=== PATIENT | male | born 1965 | race Caucasian/White ===

== ENCOUNTER 2017-03-20 12:06 | Outpatient (CLI) | payer OTHER ==
--- NOTE | 2017-03-20 12:49 | PDANEPAE ---
ANE History of Present Illness h/o MS surveillance MRI ANE Past Medical History - Cardiovascular History Hx Hypertension: No Hx Arrhythmias: No Hx Chest Pain: No Hx Coronary Artery / Peripheral Vascular Disease: No Hx CHF / Valvular Disease: No Hx Palpitations: No - Pulmonary History Hx COPD: No Hx Asthma/Reactive Airway Disease: No Hx Recent Upper Respiratory Infection: No Hx Oxygen in Use at Home: No Hx Sleep Apnea: Yes Pulmonary History Comment: PNA - Neurologic History Hx Cerebrovascular Accident: No Hx Seizures: No Hx Dementia: No Neurologic History Comment: MS - Endocrine History Hx Diabetes: No Obesity: yes - Renal History Hx Renal Disorders: No - Liver History Hx Hepatic Disorders: No - Neurological & Psychiatric Hx Hx Neurological and Psychiatric Disorders: Yes Neurological / Psychiatric History Comment: +MS; depression - Cancer History Hx Cancer: No - Congenital Disorder History Hx Congenital Disorders: No - GI History Hx Gastrointestinal Disorders: Yes Gastrointestinal History Comment: ILLIO ANAL PULL THROUGH AT AGE 14. ILLEOSTOMY 2007 [id number] GI SURGERIES TOTALing 39 - Other Health History Other Health History: Recently more emotional imblalances, therefore doing MRI of brain stem and brain - Chronic Pain History Chronic Pain: Yes (L lower back) - Surgical History Prior Surgeries: MULTIPLE PRIOR MRIs W GEN ANESTHESIA;. Back fusion x 4; ucerative colitis x 39 sx w/ illiostomy; L knee x 2; R pinky fingure; ANE Review of Systems - Exercise capacity METS (RN): 3 METS ANE Patient History - Allergies Allergies/Adverse Reactions: No Known Allergies Allergy (Unverified 12/18/12 16:06) - Home Medications Home medications: home medication list seen and reviewed Home Medications: Aubagio 14 mg PO DAILY 03/18/17 [Last Taken Unknown] Fentanyl 100 mcg TD EVERY OTHER DAY 03/18/17 [Last Taken Unknown] Lamotrigine 200 mg PO DAILY 03/18/17 [Last Taken Unknown] OLANZapine 20 mg PO DAILY 03/18/17 [Last Taken Unknown] Oxycodone HCl 15 mg PO DAILY PRN 03/18/17 [Last Taken Unknown] PARoxetine HCL 60 mg PO DAILY 03/18/17 [Last Taken Unknown] - Anes Hx Anes Hx: no prior problems - Smoking Hx Smoking Status: Never smoked - Alcohol Use Alcohol Use: Rarely - Family Anes Hx Family Anes Hx: none Family Hx Anesthesia Complications: denies ANE Labs/Vital Signs - Vital Signs Height: 185.42 cm Weight: 115.212 kg ANE Physical Exam - Airway Neck exam: FROM Mallampati Score: Class 2 Mouth exam: normal dental/mouth exam - Pulmonary Pulmonary: no respiratory distress - Cardiovascular Cardiovascular: regular rate and rhythym - ASA Status ASA Status: III ANE Anesthesia Plan Anesthesia Plan: GA w LMA
[2017-03-20] MEDS ORDERED: GADOBUTROL 10 ML VIAL IVP ONE (12:55)
[2017-03-20] MEDS ORDERED: ROCURONIUM 100 MG/10 ML VIAL ONE (13:22)
[2017-03-20] MEDS ORDERED: SUCCINYLCHOLINE CHLORIDE 200 MG/10 ML VIAL ONE (13:22)
[2017-03-20] MEDS ORDERED: PROPOFOL/EMULSION 500 MG/50 ML BOTTLE IV ONE (13:25)
[2017-03-20] MEDS ORDERED: NALOXONE HCL 0.4 MG/ML INJ IVP PRN (15:57)
[2017-03-20] MEDS ORDERED: LR 500 ML IV PRN (15:57)
[2017-03-20] MEDS ORDERED: PROMETHAZINE HCL 25 MG/ML INJ IVP PRN (15:57)
[2017-03-20] MEDS ORDERED: ONDANSETRON 4 MG/2 ML VIAL IVP PRN (15:57)
[2017-03-20] MEDS ORDERED: ACETAMINOPHEN 500 MG TAB PO PRN (15:57)
[2017-03-20] MEDS ORDERED: OXYCODONE/APAP 5/325 TAB PO PRN (15:57)
--- NOTE | 2017-03-20 15:57 | POSTANESTH ---
Post Anesthetic Evaluation Cardiovascular Status: Normal, Stable Respiratory Status: Normal, Stable Level of Consciousness/Mental Status: Can Participate in Eval Pain Control: Adequate, Prn Tx Ordered Nausea/Vomiting Control: Adequate, Prn Tx Ordered Complications Possibly Related to Anesthesia: None Noted
[2017-03-20 16:29] VITALS: TEMP 97.2
[2017-03-20 16:53] VITALS: BP 109/81; RESP 16; O2SAT 93
[2017-03-20] MEDS ORDERED: PHENYLEPHRINE 10 MG/ML SDV ONE (18:14)
[2017-03-20] MEDS ORDERED: LIDOCAINE 2% 2 ML INJ ONE (18:14)
== END 2017-03-20 17:05 | disposition home health service (06) ==
LOC: FIMAGING 12:06
PROVIDERS: ATTEND Specialist
DX: G35 Multiple sclerosis (principal)
CPT/HCPCS: 70553; 72156; A9585; J2370; J2704; J0330

== ENCOUNTER 2018-02-12 06:55 | Outpatient (CLI) | payer OTHER ==
[2018-02-12] MEDS ORDERED: GADOBUTROL 10 ML VIAL IVP ONE (07:59)
[2018-02-12] MEDS ORDERED: MIDAZOLAM 2 MG/2 ML VIAL IVP PRN (08:25)
[2018-02-12] MEDS ORDERED: MIDAZOLAM 2 MG/2 ML VIAL IVP ONE (08:25)
[2018-02-12] MEDS ORDERED: ALBUTEROL 3 ML DEYVIAL IH PRN (08:26)
[2018-02-12] MEDS ORDERED: ONDANSETRON 4 MG/2 ML VIAL IVP PRN (08:26)
[2018-02-12] MEDS ORDERED: NALOXONE HCL 0.4 MG/ML INJ IVP PRN (08:26)
[2018-02-12] MEDS ORDERED: fentaNYL 100 MCG/2 ML INJ IVP PRN (08:26)
--- NOTE | 2018-02-12 08:26 | PDANEPAE ---
ANE History of Present Illness here for MRI brain ANE Past Medical History - Cardiovascular History Hx Hypertension: No Hx Arrhythmias: No Hx Chest Pain: No Hx Coronary Artery / Peripheral Vascular Disease: No Hx CHF / Valvular Disease: No Hx Palpitations: No - Pulmonary History Hx COPD: No Hx Asthma/Reactive Airway Disease: No Hx Recent Upper Respiratory Infection: No Hx Oxygen in Use at Home: No Hx Sleep Apnea: No Sleep Apnea Screening Result - Last Documented: Positive Pulmonary History Comment: PNA - Neurologic History Hx Cerebrovascular Accident: No Hx Seizures: No Hx Dementia: No Neurologic History Comment: MS - Endocrine History Hx Diabetes: No Hypothyroid: No Hyperthyroid: No Obesity: moderate - Renal History Hx Renal Disorders: No - Liver History Hx Hepatic Disorders: No - Neurological & Psychiatric Hx Hx Neurological and Psychiatric Disorders: Yes Neurological / Psychiatric History Comment: MS; depression - Cancer History Hx Cancer: No - Congenital Disorder History Hx Congenital Disorders: No - GI History GERD: no Hx Gastrointestinal Disorders: Yes Gastrointestinal History Comment: ILLIO ANAL PULL THROUGH AT AGE 14. ILLEOSTOMY 2007. SURGERIES TOTALing 39 - Other Health History Other Health History: Recently more emotional imblalances, therefore doing MRI of brain stem and brain - Chronic Pain History Chronic Pain: Yes (L lower back; hands) - Surgical History Prior Surgeries: MULTIPLE PRIOR MRIs W GEN ANESTHESIA;. Back fusion x 4; ucerative colitis x 39 sx w/ illiostomy; L knee scraping/cleaning x 2; R pinky finger ANE Review of Systems Review of systems is: negative Review of Systems: - Exercise capacity METS (RN): 2 METS ANE Patient History - Allergies Allergies/Adverse Reactions: No Known Allergies Allergy (Verified 02/06/18 10:35) - Home Medications Home medications: home medication list seen and reviewed Home Medications: Aubagio 14 mg PO DAILY 03/18/17 [Last Taken 02/10/18 16:00] Fentanyl 100 mcg TD EVERY OTHER DAY 03/18/17 [Last Taken 02/12/18 06:00] Lamotrigine 200 mg PO DAILY 03/18/17 [Last Taken 02/11/18 20:00] OLANZapine 20 mg PO DAILY 03/18/17 [Last Taken 02/11/18 20:00] Oxycodone HCl 15 mg PO DAILY PRN 03/18/17 [Last Taken 02/11/18 20:00] PARoxetine HCL 60 mg PO DAILY 03/18/17 [Last Taken 02/11/18 20:00] Vitamin D3 50,000 i.unit PO SU19 02/12/18 [Last Taken 02/09/18 10:00] - NPO status NPO Status: no food or drink >8 hours - Smoking Hx Smoking Status: Never smoked - Family Anes Hx Family Hx Anesthesia Complications: denies ANE Labs/Vital Signs - Vital Signs Blood Pressure: 124/88 Heart Rate: 81 Respiratory Rate: 16 O2 Sat (%): 85 Height: 185.42 cm Weight: 113.398 kg ANE Physical Exam - Airway Neck exam: FROM Mallampati Score: Class 2 Mouth exam: normal dental/mouth exam - Pulmonary Pulmonary: no respiratory distress - Cardiovascular Cardiovascular: regular rate and rhythym - ASA Status ASA Status: III ANE Anesthesia Plan Anesthesia Plan: GA w LMA
[2018-02-12] MEDS ORDERED: MIDAZOLAM 2 MG/2 ML VIAL ONE (08:29)
[2018-02-12] MEDS ORDERED: PROPOFOL/EMULSION 500 MG/50 ML BOTTLE IV ONE (08:29)
[2018-02-12] MEDS ORDERED: PROPOFOL 200 MG/20 ML VIAL ONE (08:29)
[2018-02-12] MEDS ORDERED: NS 1,000 ML IV SCH (08:30)
[2018-02-12 12:17] VITALS: BP 124/76
== END 2018-02-12 12:09 | disposition home or self-care (01) ==
LOC: FIMAGING 06:55
PROVIDERS: ATTEND Specialist
DX: G35 Multiple sclerosis (principal); M50.31 Other cervical disc degeneration, high cervical region; M48.02 Spinal stenosis, cervical region
CPT/HCPCS: 70553; 72156; A9585; J2250; J2704